=== PATIENT | female | born 1935 | race Two or more races ===

== ENCOUNTER 2019-12-24 09:08 | Emergency (ER) | payer OTHER ==
[~2019-12-24] VITALS: Ht 157.5 cm; Wt 61.2 kg
[~2019-12-24 09:08] MED LIST: CATAFLAM50 MG PO; METFORMIN HYDRO25 GM; SYNTHROID112 MCG; ZOCOR40 MG
== END 2019-12-24 15:29 | disposition home or self-care (01) ==
LOC: ER 09:08
DX: I16.0 Hypertensive urgency (principal); I10 Essential (primary) hypertension